=== PATIENT | female | born 1980 | race Caucasian/White ===

== ENCOUNTER 2016-07-05 19:59 | Emergency (ER) | payer OTHER ==
[2016-07-05] MEDS ORDERED: predniSONE 20 MG TABLET PO STA (20:09)
[2016-07-05] MEDS ORDERED: predniSONE 20 MG TABLET ONE (20:12)
== END 2016-07-05 20:33 | disposition home or self-care (01) ==
DX: J39.2 Other diseases of pharynx (principal)
CPT/HCPCS: 99283; J7512

== ENCOUNTER 2018-01-09 10:22 | Emergency (ER) | payer OTHER ==
[2018-01-09 11:12] LABS: BILIRUBIN,URINE NEGATIVE (NEGATIVE); GLUCOSE, URINE (UA) NEGATIVE (NEGATIVE); KETONES,URINE (UA) TRACE mg/dL (NEGATIVE); LEUKOCYTE ESTERASE, URINE NEGATIVE (NEGATIVE); NITRITE,URINE NEGATIVE (NEGATIVE); OCCULT BLOOD,URINE LARGE (NEGATIVE); PROTEIN,URINE TRACE mg/dL (NEGATIVE); UROBILINOGEN,URINE 0.2 (NORMAL) E.U./dL (NORMAL)
[2018-01-09 11:21] LABS: BASOPHILS % (AUTO) 0.4 %; EOSINOPHILS % (AUTO) 0.5 %; MEAN CORPUSCULAR HEMOGLOBIN 29.4 pg (27.0-31.0); MEAN CORPUSCULAR HGB CONC 33.3 g/dL (32.0-36.0); MEAN CORPUSCULAR VOLUME 88.2 fL (81.0-99.0); MEAN PLATELET VOLUME 9.9 fL (7.9-10.8); MONOCYTES # (AUTO) 0.4 10^3/uL (0.0-1.0); MONOCYTES % (AUTO) 5.9 %; NEUTROPHILS # (AUTO) 5.5 10^3/uL (1.5-6.6); NEUTROPHILS % (AUTO) 79.2 %; PLT - PLATELET COUNT 197 10^3/uL (130-450); RED BLOOD COUNT 4.75 10^6/uL (4.20-5.40); RED CELL DISTRIBUTION WIDTH 12.9 % (12.0-15.0); WHITE BLOOD COUNT 6.9 x10^3/uL (4.8-10.8)
[2018-01-09 11:24] LABS: ALBUMIN 4.9 g/dL (3.2-5.5); ALBUMIN/GLOBULIN RATIO 1.7 (1.0-2.2); BILIRUBIN,TOTAL 1.6 mg/dL (0.2-1.0); CALCIUM 9.4 mg/dL (8.5-10.3); CREATININE 0.8 mg/dL (0.4-1.0); TOTAL PROTEIN 7.8 g/dL (6.7-8.2)
[2018-01-09 11:28] LABS: CLARITY,URINE BLOODY (CLEAR); HCG UR QUAL NEGATIVE
--- NOTE | 2018-01-09 11:40 | ED Physician Documentation ---
History of Present Illness - Stated complaint Stated Complaint: ABD PX - Chief complaint Chief Complaint: Abd Pain - Additonal information Additional information: hx from pt 37 f not preg s/p endometrial ablation hx kindey stones - last imaging about a year ago showed a 6 mm stone R flank pain and hematuria started last night escalated today despite NSAID and hoit shower subsided shortly after arrival here no fever + nausea Review of Systems Constitutional: denies: Fever GI: reports: Abdominal Pain, Nausea. denies: Vomiting : reports: Hematuria. 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: Ovarian cysts : Kidney stones - Past Surgical History Past Surgical History: Yes /MARINE REPORTER: Endometrial ablation HEENT: Rhinoplasty, Tonsil/Adenoidectomy - Allergies Allergies/Adverse Reactions: Allergies Allergy/AdvReac Type Severity Reaction Status Date / Time sulfamethoxazole AdvReac Intermediate Rash Verified 07/05/16 20:05 [From ] trimethoprim [From ] AdvReac Intermediate Rash Verified 01/09/18 10:33 - Social History Does the pt smoke?: No Smoking Status: Never smoker Does the pt drink ETOH?: No Does the pt have substance abuse?: No - Immunizations Immunizations are current?: Yes - POLST Patient has POLST: No PD ED PE NORMAL - Vitals Vital signs reviewed: Yes - Cardiac Cardiac: RRR - Respiratory Respiratory: No respiratory distress - Abdomen Abdomen: Soft, Other (mild RLQ TTP s peritoneal signs) - Back Back: Other (mild R CVA TTP) Results - Vitals Vitals: Vital Signs - 24 hr 01/09/18 01/09/18 10:32 12:13 Temperature 36.2 C L Heart Rate 96 77 Respiratory 22 18 Rate Blood Pressure 148/87 H 100/72 O2 Saturation 100 100 Oxygen O2 Source Room air - Labs Labs: Laboratory Tests 01/09/18 01/09/18 01/09/18 10:52 11:05 11:05 WBC 6.9 RBC 4.75 Hgb 14.0 Hct 41.9 MCV 88.2 MCH 29.4 MCHC 33.3 RDW 12.9 Plt Count 197 MPV 9.9 Neut # (Auto) 5.5 Lymph # (Auto) 1.[address] [place] # (Auto) 0.4 Eos # (Auto) 0.0 Baso # (Auto) 0.0 Absolute Nucleated RBC 0.00 Nucleated RBC % 0.0 Sodium 138 Potassium 3.8 Chloride 100 L Carbon Dioxide 25 Anion Gap 13.0 BUN 10 Creatinine 0.8 Estimated GFR (MDRD) 80 L Glucose 116 H Calcium 9.4 Total Bilirubin 1.6 H AST 20 ALT 12 Alkaline Phosphatase 46 Total Protein 7.8 Albumin 4.9 Globulin 2.9 Albumin/Globulin Ratio 1.7 Lipase 28 Urine Color RED/BLOODY Urine Clarity BLOODY Urine pH 8.0 H Ur Specific [place] 1.010 Urine Protein TRACE Urine Glucose (UA) NEGATIVE Urine Ketones TRACE Urine Occult Blood LARGE H Urine Nitrite NEGATIVE Urine Bilirubin NEGATIVE Urine Urobilinogen 0.2 (NORMAL) Ur Leukocyte Esterase NEGATIVE Urine RBC TNTC H Urine WBC 0-3 Ur Squamous Epith Cells FEW Squamous Urine Bacteria None Seen Urine Yeast PRESENT Ur Microscopic Review INDICATED Urine Culture Comments NOT INDICATED Urine HCG, Qual NEGATIVE PD MEDICAL DECISION MAKING - ED course ED course: sono ordered 1130 pt still has not left for her test at 130 she is feeling better rpt abd exam = minimal TTP so doubt appy bili noted but pain was R flank to RLQ not RUQ - and that would no explain hematuria + hematuria so c/w passed stone no infection except yeast will dc diflucan for yeast - Sepsis Event Vital Signs: Vital Signs - 24 hr 01/09/18 01/09/18 10:32 12:13 Temperature 36.2 C L Heart Rate 96 77 Respiratory 22 18 Rate Blood Pressure 148/87 H 100/72 O2 Saturation 100 100 Oxygen O2 Source Room air Departure - Departure Disposition: 01 Home, Self Care Clinical Impression: Renal colic Condition: Good Instructions: ED Stone Renal W Colic Follow-Up: Ab Coronado DO [Primary Care Provider] - Comments: The pain sounds typical of renal colic and there was blood in your urine The pain has subsided indicating the stone has passed. We were going to get an ultrasound but there was a delay getting this test at [facility] today Since you are feeling better I think it is safe for you to go home. There was no bacterial infection in the urine but there was some yeast so we treated you with diflucan in the ER You blood work was fine except for a slightly elevated bilirubin level - this can indicate gallbladder problems - but your pain today was lower than the gallbladder location so I don't think this is a significant concern. If you have more episodes of pain, talk to your doctor about getting the ultrasound after all - to look at both the gallbladder and kidney Forms: Activity restrictions
[2018-01-09 12:00] LABS: RBC,URINE TNTC /HPF (0-5); SQUAMOUS EPITHELIAL CELL,UR FEW Squamous (<= Few)
[2018-01-09 12:01] LABS: BACTERIA,URINE None Seen /HPF (None Seen); YEAST,URINE PRESENT
[2018-01-09 12:13] VITALS: BP 100/72
[2018-01-09] MEDS: FLUCONAZOLE 100 MG TABLET PO STA (13:54)
== END 2018-01-09 14:13 | disposition home or self-care (01) ==
LOC: ED 10:22
DX: N20.0 Calculus of kidney (principal); B37.49 Other urogenital candidiasis; R79.89 Other specified abnormal findings of blood chemistry
CPT/HCPCS: 36415; 80053; 81001; 81025; 83690; 85025; 99283; 99284; A9270; 81003; 87086